=== PATIENT | female | born 1990 | race African-American/Black ===

== ENCOUNTER 2017-07-08 08:39 | Emergency (ER) | payer MEDICAID, OTHER ==
[~2017-07-08] VITALS: Ht 170.2 cm; Wt 75.3 kg
[~2017-07-08 08:39] MED LIST: RANITIDINE HCL150 MG ORAL; ZOFRAN ODT4 MG ORAL
[2017-07-08] MEDS ORDERED: NKM (08:51)
[2017-07-08 08:55] VITALS: BP 105/64
[2017-07-08] MEDS ORDERED: IBUPROFEN600 MG ORAL (09:05)
[2017-07-08 09:35] VITALS: BP 105/64
--- NOTE | 2017-07-08 09:43 | Emergency Room Report ---
History of Present Illness General Chief Complaint: General Complaint Source: Patient, Family Member Present Illness HPI 27-year-old female, no significant past medical history, presenting with back pain, headache, left breast pain intermittently for one week. Patient has not taken any medication. Patient states that she has more pain when she has been carrying her child. Has slight headache, left-sided, and no fever chills neck pain nausea vomiting blurry vision motor or sensory weakness. Patient has been eating and drinking normally. No fever no chills. Allergies: Coded Allergies: No Known Allergies (Unverified , 06/28/15) Patient History Past Medical History: see triage record Past Surgical History: none Pertinent Family History: none Last Menstrual Period: 06/17/17 Now: No - Mirena IUD Reviewed Nursing Documentation: PMH: Agreed, PSxH: Agreed Nursing Documentation-PMH Past Medical History: No Stated History Review of Systems All Other Systems: negative except mentioned in HPI Physical Exam Vital Signs Date Time Temp Pulse Resp B/P (MAP) Pulse Ox O2 Delivery O2 Flow Rate FiO2 07/08/17 08:48 98.9 73 16 105/64 100 Room Air 99.0 Sp02 EP Interpretation: reviewed, normal General Appearance: normal inspection, well appearing, no apparent distress, alert, GCS 15, non-toxic Head: normocephalic, atraumatic Eyes: bilateral eye normal inspection, bilateral eye PERRL, bilateral eye EOMI ENT: normal ENT inspection, normal pharynx, normal voice, moist mucus membranes Neck: normal inspection, full range of motion, supple, no meningismus Respiratory: normal inspection, lungs clear, normal breath sounds, no respiratory distress, no retraction, no wheezing, speaking full sentences, chest symmetrical Cardiovascular #1: normal inspection, regular rate, rhythm, no edema, normal capillary refill, other - breasts normal no erthema Cardiovascular #2: 2+ radial (R), 2+ radial (L) Gastrointestinal: normal inspection, non tender, soft, non-distended, no guarding Musculoskeletal: normal inspection, back normal, normal range of motion, non- tender Neurologic: normal inspection, alert, oriented x3, responsive, playground supervisor III-XII nml as tested, motor strength/tone normal, sensory intact, normal gait, speech normal Psychiatric: normal inspection, judgement/insight normal, memory normal Skin: normal inspection, normal color, no rash, warm/dry, well hydrated, normal turgor Medical Decision Making Diagnostic Impression: Primary Impression: Headache ER Course 27-year-old female presenting with intermittent headache, back pain, left breast pain No findings on physical exam DDX: Primary QUINTANILLA such as migraine, tension QUINTANILLA, cluster. vs. dehydration Other serious diagnoses on differential such as intracranial bleed/sah, meningitis/encephalitis, tumor, however patients H&P is more consistent with benign etiology at this time. There are no neurological signs/symptoms/findings on physical exam and patient appears nontoxic. Back pain likely musculoskeletal, no signs or symptoms to indicate serious pathology such as cord compression, epidural abscess. Patient has full range of motion. Left breast pain, again likely musculoskeletal: There is no signs of infection Plan: Motrin ER course: Patient feels much better Patient continues to appear nontoxic, aox3, no neurologic symptoms. Disposition: Patient will be discharged to home. Patient instructed to follow up with primary care doctor within 5 days. Strict return precautions discussed with patient such as severe/worsening headache, nausea, vomiting, fever chills, neck pain. Patient verbalized understanding. Please note that this Emergency Department Report was dictated using [employer] guide technology software, occasionally this can lead to erroneous entry secondary to interpretation by the dictation equipment. Last Vital Signs Date Time Temp Pulse Resp B/P (MAP) Pulse Ox O2 Delivery O2 Flow Rate FiO2 07/08/17 09:35 99.0 16 105/64 100 Room Air 210.2 07/08/17 08:48 73 Disposition: HOME, SELF-CARE Condition: Improved Scripts Ibuprofen* (MOTRIN*) 600 Mg Tablet 600 MG ORAL Q8H Y for For Pain, #30 TAB 0 Refills Prov: Ashlie Rizo M.D. 07/08/17 Referrals: [facility],REFERRING (PCP) Patient Instructions: General Headache Without Cause, [id number] Additional Instructions: PLEASE SEE YOUR DOCTOR IN 1 WEEK Ashlie Rizo M.D. Jul 08, 2017 09:43
== END 2017-07-08 09:37 | disposition home or self-care (01) ==
LOC: EMR 09:07
DX: R51 Headache (principal); M54.9 Dorsalgia, unspecified
CPT/HCPCS: 99283

== ENCOUNTER 2018-04-04 16:14 | Emergency (ER) | payer MEDICAID, OTHER ==
[~2018-04-04] VITALS: Ht 170.2 cm; Wt 79.4 kg
[~2018-04-04 16:14] MED LIST changes: +IBUPROFEN600 MG ORAL; +NKM
[2018-04-04 16:29] VITALS: BP 118/62
[2018-04-04] MEDS ORDERED: Lidocaine 2% Visc 15ml soln ORAL ONE (16:45)
[2018-04-04] MEDS ORDERED: Mylanta II UD 30ml ORAL ONE (16:45)
[2018-04-04 16:57] LABS: BILIRUBIN, URINE 2+ (NEGATIVE); GLUCOSE, URINE (UA) NEGATIVE (NEGATIVE); KETONES,URINE 1+ (NEGATIVE); LEUKOCYTE ESTERASE ,URINE 1+ (NEGATIVE); NITRITE,URINE NEGATIVE (NEGATIVE); PH,URINE 5 (4.5-8.0); PROTEIN,URINE 2+ (NEGATIVE); UROBILINOGEN,URINE 4 MG/DL (0.0-1.0)
[2018-04-04 17:01] LABS: COLOR,URINE AMBER
[2018-04-04 17:02] LABS: APPEARANCE,URINE SLIGHTLY CLOUDY
[2018-04-04 17:05] LABS: BASOPHILS % (AUTO) 0.7 % (0.0-2.0); EOSINOPHILS % (AUTO) 1.2 % (0.0-3.0); HEMOGLOBIN 12.9 G/DL (12.0-16.0); LYMPHOCYTES % (AUTO) 12.3 % (20.0-45.0); MEAN CORPUSCULAR VOLUME 86 FL (80-99); MONOCYTES % (AUTO) 7.3 % (1.0-10.0); NEUTROPHILS % (AUTO) 78.5 % (45.0-75.0); PLATELET COUNT 283 K/UL (150-450); RED BLOOD COUNT 4.16 M/UL (4.20-5.40); RED CELL DISTRIBUTION WIDTH 10.2 % (11.6-14.8); WHITE BLOOD COUNT 11.2 K/UL (4.8-10.8)
--- NOTE | 2018-04-04 17:25 | Emergency Room Report ---
History of Present Illness General Chief Complaint: Abdominal Pain Source: Patient (Mala Arreola) Present Illness HPI 27-year-old female presents to the emergency department complaining of 9 out of 10 in severity epigastric and right upper quadrant abdominal pain since yesterday. Patient reports multiple episodes of vomiting she estimates approximately 2 episodes today and 3 episodes yesterday with acute onset in the afternoon after eating. Patient reports persistent pain that is starting to migrate to the right upper quadrant and the left lower. Patient denies constipation, diarrhea, or blood in the vomit or stool. She also denies black tarry stools. Denies fevers or chills. Denies and states she has an IUD. She denies recent travel or ill contacts with similar symptoms. Patient denies hematuria, dysuria or urinary frequency. Denies pmhx. (Mala Arreola) Allergies: Coded Allergies: No Known Allergies (Unverified , 06/28/15) Patient History Past Medical History: see triage record Past Surgical History: none Pertinent Family History: none Last Menstrual Period: 03/2018 Now: No Reviewed Nursing Documentation: PMH: Agreed; PSxH: Agreed (Mala Arreola) Nursing Documentation-PMH Past Medical History: No Stated History (Mala Arreola) Review of Systems All Other Systems: negative except mentioned in HPI (Mala Arreola) Physical Exam Vital Signs Date Time Temp Pulse Resp B/P (MAP) Pulse Ox O2 Delivery O2 Flow Rate FiO2 04/04/18 16:18 98.4 80 20 113/68 99 Room Air Sp02 EP Interpretation: reviewed, normal General Appearance: alert, GCS 15, non-toxic, mild distress Head: normocephalic, atraumatic Eyes: bilateral eye normal inspection, bilateral eye PERRL ENT: hearing grossly normal, normal voice Neck: full range of motion Respiratory: lungs clear, normal breath sounds, no wheezing, speaking full sentences Cardiovascular #1: regular rate, rhythm Gastrointestinal: normal bowel sounds, soft, tenderness - TTP Epigastric area and RUQ. No RLQ TTP. some mild LLQ TTP. No adnexal TTP, Positive Good's sign. negative rosvigns or macburny's point tenderness. Rectal: deferred Genitourinary: normal inspection, no CVA tenderness Musculoskeletal: back normal, gait/station normal, normal range of motion, non- tender Neurologic: alert, oriented x3, responsive, motor strength/tone normal, sensory intact, speech normal, grossly normal Psychiatric: judgement/insight normal Skin: normal color, no rash, warm/dry, well hydrated Lymphatic: no adenopathy (Mala Arreola) Medical Decision Making PA Attestation Dr. Ramirez is my supervising Physician whom patient management has been discussed with. (Mala Arreola) Medicare Attestation Patient's workup and evaluation also reviewed by myself I do agree with the exam and workup patient's blood work is concerning for gallstone pancreatitis further imaging initiated and patient requires admission to the hospital 20:55 Please note that at this time the patient had reported that she wanted to leave the hospital AGAINST MEDICAL ADVICE, she has spoken to the provider already, however I felt it was important for me to also discuss this with the patient. Patient is at full decision-making capacity, awake and alert GCS 15, it is explained clearly that leaving the hospital at this time can lead to worsening symptoms worsening infection and possible , patient reports that she cannot stay in the hospital at this time and understands the risks (Molly Ramirez DO) Diagnostic Impression: Primary Impression: Acute gallstone pancreatitis Additional Impression: UTI (urinary tract infection) Qualified Codes: N30.01 - Acute cystitis with hematuria ER Course 27-year-old female presents to the emergency department complaining of 9 out of 10 in severity epigastric and right upper quadrant abdominal pain since yesterday. Patient reports multiple episodes of vomiting she estimates approximately 2 episodes today and 3 episodes yesterday with acute onset in the afternoon after eating. Patient reports persistent pain that is starting to migrate to the right upper quadrant and the left lower. Patient denies constipation, diarrhea, or blood in the vomit or stool. She also denies black tarry stools. Denies fevers or chills. Denies and states she has an IUD. She denies recent travel or ill contacts with similar symptoms. Patient denies hematuria, dysuria or urinary frequency. Denies pmhx. Ddx considered but are not limited to Gastritis, Acute Appendicitis, Diarrhea,UC , PUD, GE, Pancreatitis, Gallstone, Ectopic , UTI just to name a few. Vital signs: are WNL, pt. is afebrile H&PE are most consistent with abdominal pain and vomiting without evidence of acute abdomen. Moderate RUQ ttp compared to other areas of the abdomen and positive Good's sign. Will do labs and consider US imaging. ORDERS: -CBC, CMP, LIPASE: Elevated LFT's, Lipase ( 14, 783) and Bilirubin -UA: blood and RBC's, Moderate bacteria. elevated WBC's and Leuks= UTI -URINE HCG:Negative ED INTERVENTIONS: -PO zofran 4mg IV -Viscous Lidocaine PO -Mylanta PO -Pepcid PO - 1 liter bolus IV Fluids -Pyridium PO -Toradol IV --pt. pain is well controlled after Toradol. DISPOSITION: at this time pt. will be admitted for Gallstone Pancreatitis - Pt. is a possible transfer due to insurance purposes. Pt. is in a stable condition and transfer of care is being facilitated. Labs Test 04/04/18 16:25 04/04/18 16:50 Urine Color Margi Urine Appearance Slightly cloudy Urine pH 5 (4.5-8.0) Urine Specific [place] 1.015 (1.005-1.035) Urine Protein 2+ (NEGATIVE) Urine Glucose (UA) Negative (NEGATIVE) Urine Ketones 1+ (NEGATIVE) Urine Blood 4+ (NEGATIVE) Urine Nitrite Negative (NEGATIVE) Urine Bilirubin 2+ (NEGATIVE) Urine Ictotest Negative (NEGATIVE) Urine Urobilinogen 4 MG/DL (0.0-1.0) Urine Leukocyte Esterase 1+ (NEGATIVE) Urine RBC 15-20 /HPF (0 - 2) Urine WBC 5-10 /HPF (0 - 2) Urine Squamous Epithelial Cells Many /LPF (NONE/OCC) Urine Bacteria Moderate /HPF (NONE) Urine HCG, Qualitative Negative (NEGATIVE) White Blood Count 11.2 K/UL (4.8-10.8) Red Blood Count 4.16 M/UL (4.20-5.40) Hemoglobin 12.9 G/DL (12.0-16.0) Hematocrit 36.0 % (37.0-47.0) Mean Corpuscular Volume 86 FL (80-99) Mean Corpuscular Hemoglobin 31.0 PG (27.0-31.0) Mean Corpuscular Hemoglobin Concent 35.8 G/DL (32.0-36.0) Red Cell Distribution Width 10.2 % (11.6-14.8) Platelet Count 283 K/UL (150-450) Mean Platelet Volume 8.6 FL (6.5-10.1) Neutrophils (%) (Auto) 78.5 % (45.0-75.0) Lymphocytes (%) (Auto) 12.3 % (20.0-45.0) Monocytes (%) (Auto) 7.3 % (1.0-10.0) Eosinophils (%) (Auto) 1.2 % (0.0-3.0) Basophils (%) (Auto) 0.7 % (0.0-2.0) Sodium Level 137 MMOL/L (136-145) Potassium Level 4.1 MMOL/L (3.5-5.1) Chloride Level 102 MMOL/L (98-107) Carbon Dioxide Level 30 MMOL/L (21-32) Anion Gap 6 mmol/L (5-15) Blood Urea Nitrogen 8 mg/dL (7-18) Creatinine 0.6 MG/DL (0.55-1.30) Estimat Glomerular Filtration Rate > 60 mL/min (>60) Glucose Level 149 MG/DL (74-106) Calcium Level 9.6 MG/DL (8.5-10.1) Total Bilirubin 2.1 MG/DL (0.2-1.0) Direct Bilirubin 1.5 MG/DL (0.0-0.3) Aspartate Amino Transf (AST/SGOT) 405 U/L (15-37) Alanine Aminotransferase (ALT/SGPT) 507 U/L (12-78) Alkaline Phosphatase 120 U/L (46-116) Total Protein 8.7 G/DL (6.4-8.2) Albumin 4.0 G/DL (3.4-5.0) Globulin 4.7 g/dL Albumin/Globulin Ratio 0.9 (1.0-2.7) Lipase 97928 U/L (73-393) (Mala Arreola) CT/MRI/US Diagnostic Results CT/MRI/US Diagnostic Results : Imaging Test Ordered: Abdominal US Impression Impression: Multiple stones in the gallbladder, CBD of 10mm. - Per Radiology report. (Mala Arreola) Last Vital Signs Date Time Temp Pulse Resp B/P (MAP) Pulse Ox O2 Delivery O2 Flow Rate FiO2 04/04/18 16:29 98.4 74 20 118/62 99 Room Air Status: improved (Mala Arreola) Disposition: ADMITTED INPATIENT Condition: Serious Signed Out To: Dr. Ramirez (Mala Arreola) Referrals: NON PHYSICIAN (PCP) Mala Arreola Apr 04, 2018 17:25 Molly Ramirez DO Apr 04, 2018 18:14
[2018-04-04 17:27] LABS: ANION GAP 6 mmol/L (5-15); BLOOD UREA NITROGEN 8 mg/dL (7-18); CALCIUM 9.6 MG/DL (8.5-10.1); CARBON DIOXIDE 30 MMOL/L (21-32); CHLORIDE 102 MMOL/L (98-107); CREATININE 0.6 MG/DL (0.55-1.30); POTASSIUM 4.1 MMOL/L (3.5-5.1); SODIUM 137 MMOL/L (136-145)
[2018-04-04] MEDS ORDERED: Phenazopyridine 200mg tab ORAL ONE (17:30)
[2018-04-04 17:38] LABS: ALANINE AMINOTRANSFERASE 507 U/L (12-78); ALBUMIN/GLOBULIN RATIO 0.9 (1.0-2.7); ALKALINE PHOSPHATASE 120 U/L (46-116); ASPARTATE AMINO TRANSFERASE 405 U/L (15-37); BILIRUBIN,TOTAL 2.1 MG/DL (0.2-1.0)
[2018-04-04] MEDS ORDERED: Ketorolac 30mg Inj IV ONE (17:45)
[2018-04-04 18:03] LABS: BILIRUBIN,DIRECT 1.5 MG/DL (0.0-0.3)
[2018-04-04 20:46] VITALS: BP 103/73
[2018-04-04 21:12] VITALS: BP 101/72
--- NOTE | 2018-04-06 12:15 | Diagnostic Imaging Report ---
Indication: Abdominal pain, nausea, vomiting, epigastric pain Technique: Barahona-scale and duplex images of the upper abdomen were obtained. Doppler interrogation of the hepatic and pancreatic vessels Comparison: none Findings: Gallbladder demonstrates gallstones. Gallbladder wall is borderline thickened, measuring 3 mm thick. Free fluid is seen adjacent to the gallbladder. Sonographic Good's sign is negative. Common bile duct measures 10 mm in diameter. No intrahepatic biliary ductal dilatation. Liver demonstrates normal echogenicity, no focal abnormality. Portal vein and hepatic veins are patent. Pancreas is unremarkable. Spleen is unremarkable. Left kidney measures 12.9 cm in length. Right kidney measures 12.4 cm length. Both kidneys demonstrate normal echogenicity. There is no hydronephrosis. No focal abnormality . Non-aneurysmal abdominal aorta . Impression: Cholelithiasis. Borderline gallbladder wall thickening, could indicate early acute cholecystitis changes. Correlate with clinical findings, consider nuclear medicine hepatobiliary scan if clinically indicated Dilated (10 mm) common bile duct. Downstream obstruction not excludable Trace free intraperitoneal fluid This agrees with the preliminary interpretation provided overnight by [facility].
== END 2018-04-04 21:16 | disposition left against medical advice (07) ==
LOC: EMR 17:00 → EDBEDREQ 18:05 → CANBEDREQ 20:55 → EMR 21:16
DX: K85.10 Biliary acute pancreatitis without necrosis or infection (principal); N39.0 Urinary tract infection, site not specified
CPT/HCPCS: 36415; 76700; 80053; 81003; 81025; 82248; 83690; 85025; 87086; 96361; 96374; 96375; 99285; J1885; J2405

== ENCOUNTER 2018-10-11 14:20 | Emergency (ER) | payer OTHER ==
[~2018-10-11] VITALS: Ht 170.2 cm; Wt 77.1 kg
[2018-10-11 14:39] VITALS: BP 112/68
--- NOTE | 2018-10-11 14:41 | NUR ---
ED Nurse Note: Pt started having medial upper abdominal pain since 0300 this morning. No complaint of n/v/d. Pain 10/19 tm. Bowel sounds present on all quadrants. AOx4, VSS lydia. Will cont to monitor.
--- NOTE | 2018-10-11 14:42 | NUR ---
ED Nurse Note: Urine collected and sent to lab.
--- NOTE | 2018-10-11 14:43 | Emergency Room Report ---
History of Present Illness General Chief Complaint: Abdominal Pain Source: Patient Present Illness HPI 28-year-old female presents to the emergency department complaining of 6 out of 10 in severity localized epigastric pain 2 hours. Patient reports onset after eating out and states that she has a very sensitive stomach and usually when she eats out she gets gastritis. Patient reports that she is the only person in her family that it the same food as her symptoms. Patient denies fevers or chills recent travel or ill contacts with similar symptoms. Patient denies she reports nausea and states she's been unable to vomit. Patient denies constipation or diarrhea, urinary frequency, hematuria or dysuria. Patient denies suspicion for she has no other aggravating or relieving symptoms at this time. Patient states she did drink some Advil and attempts to relieve her symptoms however she states her symptoms were worse after. she denies significant past medical history. Allergies: Coded Allergies: No Known Allergies (Unverified , 06/28/15) Patient History Past Medical History: see triage record Past Surgical History: none Pertinent Family History: none Last Menstrual Period: 09/27/18 Now: No Reviewed Nursing Documentation: PMH: Agreed Nursing Documentation-PMH Past Medical History: No Stated History Review of Systems All Other Systems: negative except mentioned in HPI Physical Exam Vital Signs Date Time Temp Pulse Resp B/P (MAP) Pulse Ox O2 Delivery O2 Flow Rate FiO2 10/11/18 14:24 97.9 69 20 112/68 (83) 100 Room Air Sp02 EP Interpretation: reviewed, normal General Appearance: no apparent distress, alert, GCS 15, non-toxic Head: normocephalic, atraumatic Eyes: bilateral eye normal inspection, bilateral eye PERRL ENT: hearing grossly normal, normal voice Neck: full range of motion Respiratory: lungs clear, normal breath sounds, speaking full sentences Cardiovascular #1: regular rate, rhythm Gastrointestinal: normal bowel sounds, non tender, soft, no peritonitis, non- distended, no guarding Genitourinary: normal inspection, no CVA tenderness Musculoskeletal: gait/station normal, normal range of motion, non-tender Neurologic: alert, oriented x3, responsive, motor strength/tone normal, sensory intact, speech normal, grossly normal Psychiatric: judgement/insight normal Skin: normal color, no rash, warm/dry, well hydrated Medical Decision Making PA Attestation Dr. Chavez is my supervising Physician whom patient management has been discussed with. Diagnostic Impression: Primary Impression: Epigastric pain Additional Impression: Gastritis Qualified Codes: K29.00 - Acute gastritis without bleeding ER Course 28-year-old female presents to the emergency department complaining of 6 out of 10 in severity localized epigastric pain 2 hours. Patient reports onset after eating out and states that she has a very sensitive stomach and usually when she eats out she gets gastritis. Patient reports that she is the only person in her family that it the same food as her symptoms. Patient denies fevers or chills recent travel or ill contacts with similar symptoms. Patient denies she reports nausea and states she's been unable to vomit. Patient denies constipation or diarrhea, urinary frequency, hematuria or dysuria. Patient denies suspicion for she has no other aggravating or relieving symptoms at this time. Patient states she did drink some Advil and attempts to relieve her symptoms however she states her symptoms were worse after. she denies significant past medical history. Ddx considered but are not limited to GE, colitis, acute appy, SBO, H.pylori, Gastritis, PNA, ,Gall stones, pancreatitis just to name a few. Vital signs: pt. is afebrile, H&PE are most consistent with Gastritis - no evidence to suggest acute abdomen on physical exam. ORDERS: -UA: Most indicative of contamination: presence of equal amounts of bacteria and squamous cells, no elevation in inflammatory markers, nitrite negative. -Urine Hcg: Negative ED INTERVENTIONS: -Mylanta PO -Lidocaine PO -Pepcid PO -I do not identify an emergent condition at this time. With current presentation , pt. is stable for close outpatient follow up and conservative treatment. D/ w pt. to return promptly to ED with worsening or new symptoms.- Pt. (and or responsible green party) verbalizes' understanding and agreement with proposed treatment plan.proposed treatment plan. DISCHARGE: At this time pt. is stable for d/c to home. Will provide printed patient care instructions, and any necessary prescriptions. Care plan and follow up instructions have been discussed with the patient prior to discharge. Labs Test 10/11/18 14:40 Urine Color Yellow Urine Appearance Clear Urine pH 7 (4.5-8.0) Urine Specific [place] 1.005 (1.005-1.035) Urine Protein Negative (NEGATIVE) Urine Glucose (UA) Negative (NEGATIVE) Urine Ketones Negative (NEGATIVE) Urine Blood 2+ (NEGATIVE) Urine Nitrite Negative (NEGATIVE) Urine Bilirubin Negative (NEGATIVE) Urine Urobilinogen 1 MG/DL (0.0-1.0) Urine Leukocyte Esterase Negative (NEGATIVE) Urine RBC 2-4 /HPF (0 - 2) Urine WBC 0 /HPF (0 - 2) Urine Squamous Epithelial Cells Occasional /LPF Urine Bacteria Occasional /HPF (NONE) Urine HCG, Qualitative Negative (NEGATIVE) Last Vital Signs Date Time Temp Pulse Resp B/P (MAP) Pulse Ox O2 Delivery O2 Flow Rate FiO2 10/11/18 14:39 97.9 69 20 112/68 100 Room Air Status: improved Disposition: HOME, SELF-CARE Condition: Stable Scripts Lidocaine HCl 2% Viscous (Lidocaine HCl 2% Viscous) 100 Ml Solution 10 ML ORAL QID, #120 ML Prov: Mala Arreola 10/11/18 Ranitidine Hcl* (ACID CONTROL*) 150 Mg Tablet 150 MG ORAL TWICE A DAY for 10 Days, #20 TAB Prov: Mala Arreola 10/11/18 Patient Instructions: Gastritis, Adult Additional Instructions: Take medications as directed. Follow up with a Primary Care Provider in 3-5 days, even if your symptoms have resolved. Return sooner to ED if new symptoms occur, or current symptoms become worse. - Please note that this Emergency Department Report was dictated using [employer] technology software, occasionally this can lead to erroneous entry secondary to interpretation by the dictation equipment. Mala Arreola Oct 11, 2018 14:43
[2018-10-11] MEDS ORDERED: Lidocaine 2% Visc 15ml soln ORAL ONE (14:45)
[2018-10-11 14:49] LABS: APPEARANCE,URINE CLEAR; BILIRUBIN, URINE NEGATIVE (NEGATIVE); GLUCOSE, URINE (UA) NEGATIVE (NEGATIVE); KETONES,URINE NEGATIVE (NEGATIVE); LEUKOCYTE ESTERASE ,URINE NEGATIVE (NEGATIVE); NITRITE,URINE NEGATIVE (NEGATIVE); PH,URINE 7 (4.5-8.0); PROTEIN,URINE NEGATIVE (NEGATIVE); UROBILINOGEN,URINE 1 MG/DL (0.0-1.0)
[2018-10-11 14:59] LABS: COLOR,URINE YELLOW
[2018-10-11] MEDS ORDERED: ACID CONTROL150 MG ORAL (15:42)
[2018-10-11] MEDS ORDERED: LIDOCAINE VISC100 ML ORAL (15:42)
[2018-10-11 15:50] VITALS: BP 118/54
--- NOTE | 2018-10-11 15:50 | NUR ---
ER DISCHARGE NOTE: Patient is cleared to be discharged per ERMD, pt is aox4, on room air, with stable vital signs. pt was given dc and prescription instructions, pt was able to verbalize understanding, pt id band removed. pt is able to ambulate with steady gait. pt took all belongings.
== END 2018-10-11 15:50 | disposition home or self-care (01) ==
LOC: EMR 14:53
DX: R10.13 Epigastric pain (principal); K29.00 Acute gastritis without bleeding
CPT/HCPCS: 81003; 81025; 99283

== ENCOUNTER 2018-11-05 22:44 | Inpatient (IN) | payer OTHER ==
[~2018-11-05] VITALS: Ht 167.6 cm; Wt 77.1 kg
[~2018-11-05 22:44] MED LIST changes: +ACID CONTROL150 MG ORAL; +LIDOCAINE VISC100 ML ORAL
[2018-11-05 22:57] VITALS: BP 148/99
[2018-11-05] MEDS ORDERED: Mylanta II UD 30ml ORAL ONE (23:30)
[2018-11-05] MEDS ORDERED: Dicyclomine HCl 10mg/5ml oral soln ORAL ONE (23:30)
[2018-11-05] MEDS ORDERED: Lidocaine 2% Visc 15ml soln ORAL ONE (23:30)
[2018-11-05 23:56] LABS: APPEARANCE,URINE CLEAR; BILIRUBIN, URINE 2+ (NEGATIVE); GLUCOSE, URINE (UA) NEGATIVE (NEGATIVE); KETONES,URINE 1+ (NEGATIVE); LEUKOCYTE ESTERASE ,URINE 1+ (NEGATIVE); NITRITE,URINE NEGATIVE (NEGATIVE); PH,URINE 5 (4.5-8.0); PROTEIN,URINE 2+ (NEGATIVE); UROBILINOGEN,URINE 4 MG/DL (0.0-1.0)
[2018-11-05 23:56] LABS: HEMATOCRIT 35.7 % (37.0-47.0); HEMOGLOBIN 12.4 G/DL (12.0-16.0); MEAN CORPUSCULAR VOLUME 86 FL (80-99); PLATELET COUNT 247 K/UL (150-450); RED BLOOD COUNT 4.14 M/UL (4.20-5.40); RED CELL DISTRIBUTION WIDTH 10.5 % (11.6-14.8); WHITE BLOOD COUNT 9.3 K/UL (4.8-10.8)
--- NOTE | 2018-11-06 00:08 | NUR ---
ED Nurse Note: Endorsed to Nina/WES, for covering the break. Pt is A/O X4 VSS.
[2018-11-06 00:09] LABS: COLOR,URINE YELLOW
[2018-11-06 00:24] LABS: ALANINE AMINOTRANSFERASE 393 U/L (12-78); ALBUMIN 4.1 G/DL (3.4-5.0); ALBUMIN/GLOBULIN RATIO 1.1 (1.0-2.7); ALKALINE PHOSPHATASE 115 U/L (46-116); ANION GAP 8 mmol/L (5-15); ASPARTATE AMINO TRANSFERASE 350 U/L (15-37); BILIRUBIN,TOTAL 1.4 MG/DL (0.2-1.0); BLOOD UREA NITROGEN 9 mg/dL (7-18); CALCIUM 9.4 MG/DL (8.5-10.1); CARBON DIOXIDE 26 MMOL/L (21-32); CHLORIDE 105 MMOL/L (98-107); CREATININE 0.6 MG/DL (0.55-1.30); POTASSIUM 4.1 MMOL/L (3.5-5.1); SODIUM 139 MMOL/L (136-145)
[2018-11-06 00:30] LABS: BILIRUBIN,DIRECT 0.9 MG/DL (0.0-0.3)
--- NOTE | 2018-11-06 00:43 | NUR ---
ED Nurse Note: Received report from Nina/WES. Pt is A/O X4,VSS, will continue to monitor.
[2018-11-06] MEDS ORDERED: Isovue-300 100ml vial INJ PRN (01:00)
--- NOTE | 2018-11-06 01:40 | NUR ---
ED Nurse Note: Pt was sent down for CT of abdomen.
--- NOTE | 2018-11-06 02:43 | NUR ---
ED Nurse Note: Waiting for confirmation from .
[2018-11-06] MEDS ORDERED: Piperacillin/Tazobactam 3.375 GM in NS 110 ML IVPB ONE (02:45)
[2018-11-06] MEDS ORDERED: Morphine Sulfate 4mg/ml Inj (IV USE ONLY) IVP PRN ×2 (02:45→03:45)
--- NOTE | 2018-11-06 02:45 | NUR ---
ED Nurse Note: Pt's , .
--- NOTE | 2018-11-06 02:50 | Emergency Room Report ---
History of Present Illness General Chief Complaint: Abdominal Pain Source: Patient Present Illness HPI 28-year-old female presents ED for evaluation. Patient complaining of abdominal pain nausea and vomiting. Started yesterday. Patient thinks it is food poisoning. Pain is sharp, epigastric, 7 out of 10, radiating low to lower abdomen. Denies any diarrhea. at bedside states that patient was seen here previously for similar presentation and was told that she had gallstones. No other aggravating relieving factors. Denies any other associated symptoms Allergies: Coded Allergies: No Known Allergies (Unverified , 06/28/15) Patient History Past Medical History: none Past Surgical History: none Pertinent Family History: none Social History: Denies: smoking, alcohol use, drug use Last Menstrual Period: 10/11/18 Now: No : 2 Para: 2 Immunizations: UTD Reviewed Nursing Documentation: PMH: Agreed; PSxH: Agreed Nursing Documentation-PMH Past Medical History: No Stated History Review of Systems All Other Systems: negative except mentioned in HPI Physical Exam Vital Signs Date Time Temp Pulse Resp B/P (MAP) Pulse Ox O2 Delivery O2 Flow Rate FiO2 11/05/18 22:47 98.1 98 20 97/57 (70) Room Air 11/05/18 22:57 98 Sp02 EP Interpretation: reviewed, normal General Appearance: no apparent distress, alert, GCS 15, non-toxic Head: normocephalic, atraumatic Eyes: bilateral eye normal inspection, bilateral eye PERRL ENT: hearing grossly normal, normal pharynx, no angioedema, normal voice Neck: full range of motion, supple/symm/no masses Respiratory: chest non-tender, lungs clear, normal breath sounds, speaking full sentences Cardiovascular #1: regular rate, rhythm, no edema Cardiovascular #2: 2+ carotid (R), 2+ carotid (L), 2+ radial (R), 2+ radial (L) , 2+ dorsalis pedis (R), 2+ dorsalis pedis (L) Gastrointestinal: normal bowel sounds, soft, non-distended, no guarding, no rebound, tenderness Rectal: deferred Genitourinary: normal inspection, no CVA tenderness Musculoskeletal: back normal, gait/station normal, normal range of motion, non- tender Neurologic: alert, oriented x3, responsive, motor strength/tone normal, sensory intact, speech normal Psychiatric: judgement/insight normal, memory normal, mood/affect normal, no suicidal/homicidal ideation Reflexes: 3+ bicep (R), 3+ bicep (L), 3+ tricep (R), 3+ tricep (L), 3+ knee (R) , 3+ knee (L) Skin: normal color, no rash, warm/dry, well hydrated Lymphatic: no adenopathy Medical Decision Making Diagnostic Impression: Primary Impression: Cholecystitis Additional Impression: Pancreatitis Qualified Codes: K85.90 - Acute pancreatitis without necrosis or infection, unspecified ER Course Hospital Course 28 yo F present to ED c/o abd pain Differential diagnoses include: Appendicitis, cholecystitis, small bowel obstruction Clinical course Patient placed on stretcher. nurse monitoring. After initial history and physical I ordered labs, IV fluids, UA, pain medication and CT Labs - no leukocytosis noted, Hb/Hct stable. electrolytes ok. LFTs elevated, lipase > 2000 CT - cholecystitis + pancreatits. hepatosplenomegaly Antibiotics given. Case discussed with Dr. Delvalle and he agreed to consult. Case discussed with Dr. Francis and he agreed to accept the patient to his service for further care and support I feel this is a highly complex case requiring extensive working including EKG/ Rhythm strip, Xray/CT/US, Blood/urine lab work, repeat exams while in ED, and administration of strong opiates/narcotics for pain control, admission to hospital or close patient follow up. Diagnosis - cholecystitis, pancreatitis Patient admitted to hospital in serious condition Labs Test 11/05/18 23:00 11/05/18 23:44 Urine Color Yellow Urine Appearance Clear Urine pH 5 (4.5-8.0) Urine Specific [place] 1.025 (1.005-1.035) Urine Protein 2+ (NEGATIVE) Urine Glucose (UA) Negative (NEGATIVE) Urine Ketones 1+ (NEGATIVE) Urine Blood 1+ (NEGATIVE) Urine Nitrite Negative (NEGATIVE) Urine Bilirubin 2+ (NEGATIVE) Urine Ictotest Positive (NEGATIVE) Urine Urobilinogen 4 MG/DL (0.0-1.0) Urine Leukocyte Esterase 1+ (NEGATIVE) Urine RBC 2-4 /HPF (0 - 2) Urine WBC 0-2 /HPF (0 - 2) Urine Squamous Epithelial Cells Moderate /LPF (NONE/OCC) Urine Bacteria Few /HPF (NONE) Urine HCG, Qualitative Negative (NEGATIVE) White Blood Count 9.3 K/UL (4.8-10.8) Red Blood Count 4.14 M/UL (4.20-5.40) Hemoglobin 12.4 G/DL (12.0-16.0) Hematocrit 35.7 % (37.0-47.0) Mean Corpuscular Volume 86 FL (80-99) Mean Corpuscular Hemoglobin 29.8 PG (27.0-31.0) Mean Corpuscular Hemoglobin Concent 34.6 G/DL (32.0-36.0) Red Cell Distribution Width 10.5 % (11.6-14.8) Platelet Count 247 K/UL (150-450) Mean Platelet Volume 8.9 FL (6.5-10.1) Neutrophils (%) (Auto) % (45.0-75.0) Lymphocytes (%) (Auto) % (20.0-45.0) Monocytes (%) (Auto) % (1.0-10.0) Eosinophils (%) (Auto) % (0.0-3.0) Basophils (%) (Auto) % (0.0-2.0) Sodium Level 139 MMOL/L (136-145) Potassium Level 4.1 MMOL/L (3.5-5.1) Chloride Level 105 MMOL/L (98-107) Carbon Dioxide Level 26 MMOL/L (21-32) Anion Gap 8 mmol/L (5-15) Blood Urea Nitrogen 9 mg/dL (7-18) Creatinine 0.6 MG/DL (0.55-1.30) Estimat Glomerular Filtration Rate > 60 mL/min (>60) Glucose Level 191 MG/DL (74-106) Calcium Level 9.4 MG/DL (8.5-10.1) Total Bilirubin 1.4 MG/DL (0.2-1.0) Direct Bilirubin 0.9 MG/DL (0.0-0.3) Aspartate Amino Transf (AST/SGOT) 350 U/L (15-37) Alanine Aminotransferase (ALT/SGPT) 393 U/L (12-78) Alkaline Phosphatase 115 U/L (46-116) Total Protein 7.8 G/DL (6.4-8.2) Albumin 4.1 G/DL (3.4-5.0) Globulin 3.7 g/dL Albumin/Globulin Ratio 1.1 (1.0-2.7) Lipase > 2000 U/L (73-393) CT/MRI/US Diagnostic Results CT/MRI/US Diagnostic Results : Imaging Test Ordered: CT A/P Impression Hepatosplenomegaly. The gallbladder is markedly distended containing sludge and multiple stones. Adjacent inflammatory changes including free fluid. Diffuse heterogeneous enlargement of the pancreas with moderate peripancreatic inflammatory changes. No evidence of foci of pancreatic necrosis. Intra-and extrahepatic biliary ductal dilatation with the extrahepatic bile duct measuring up to 11 mm. There is also probably at least a mild degree of associated periportal edema. Findings consistent with cholecystitis and pancreatitis. Biliary ductal dilatation indicative of either choledocholithiasis or other distal obstructing lesion. Recommend MRI/MRCP. Negative for lower GI tract obstruction, pneumatosis or evidence of pneumoperitoneum. Moderate abdominal and pelvic free fluid. IUD present. Multiple functional cyst right ovary with a dominant cyst demonstrating partial crenation or peripheral enhancement likely partially ruptured functional cyst. Last Vital Signs Date Time Temp Pulse Resp B/P (MAP) Pulse Ox O2 Delivery O2 Flow Rate FiO2 11/05/18 22:57 76 20 Room Air 11/05/18 22:57 98.1 148/99 98 Status: improved Disposition: ADMITTED INPATIENT Condition: Serious Referrals: [facility],REFERRING (PCP) Nathan Freeman MD Nov 06, 2018 02:50
--- NOTE | 2018-11-06 02:55 | NUR ---
ED Nurse Note: Report given to Hellen/WES.
--- NOTE | 2018-11-06 03:00 | NUR ---
NURSE NOTES: patient received. patient in no acute distress at this time. patient complains of no pain at this time. patient awake alert and oriented x4. at bedside. patient ambulatory. steady gait. continent x2. IV intact patent and asymptomatic. skin intact. Bed in lowest position and locked. call light within reach. will continue to monitor.
[2018-11-06 03:25] VITALS: BP 106/61
--- NOTE | 2018-11-06 03:25 | NUR ---
TRANSFER TO FLOOR: Patient transferred to /S [facility] as ordered. Report given to Hellen/WES. Belongings sent with Pt and rechecked with RN.
[2018-11-06] MEDS ORDERED: Morphine Sulfate 2mg/ml Inj(IV/IM USE ONLY) IVP PRN (03:45)
--- NOTE | 2018-11-06 04:28 | NUR ---
NURSE NOTES: patient and patients requested to leave. said they had a primary physician they would see in the morning. Nurse artificial breeding ranch supervisor and charge nurse informed. Dr. Francis was informed as well. a message was left for him informing him the patient was leaving. The patient signed an AMA. patient was accompanied out of the hospital with her . IV was removed.
--- NOTE | 2018-11-06 10:36 | Diagnostic Imaging Report ---
Indication: Abdominal pain Technique: CT of the abdomen and pelvis utilizing automated exposure control with intravenous contrast. Venous scanning performed. Axial, sagittal and coronal reformats presented. CT dose: Total DLP 856.28 mGycm; CTDI vol 15.7 mGy Comparison: Abdominal ultrasound 04/04/2018 Findings: Minimal dependent atelectasis noted in the lung bases. Heart size within normal limits. No pericardial effusion. Hepatic contour is smooth. Liver is enlarged to approximately 19 cm in cranial caudal length. No focal hepatic mass lesion appreciated on this single phase exam. Portal veins appear patent. There is abnormal distention of the gallbladder up to 5.2 cm. The gallbladder lumen contains stones and sludge. There is suggested gallbladder wall thickening and surrounding inflammatory changes with some pericholecystic fluid. There is mild central intrahepatic biliary ductal dilatation. The common bile duct is mildly prominent measuring up to 10 mm diameter. There is some periportal edema. No discrete choledocholithiasis identified. The pancreas appears edematous with some peripancreatic inflammatory changes without organized fluid collection. The pancreas enhances uniformly, without evidence to suggest focal area of necrosis. There is enlarged measuring 12.6 cm in length. No focal splenic lesions identified. Adrenal glands and kidneys unremarkable. Bladder unremarkable in appearance for degree of underdistention. Intrauterine device is noted within the uterus. Mild free fluid is noted within the pelvis. A crenulated structure is noted in the right ovary which may represent a partially ruptured functional cyst. There is no evidence of small bowel obstruction. No free intraperitoneal air. Appendix is normal. There is a small fat-containing umbilical hernia. Abdominal aorta is normal in caliber. Splenic vein, superior mesenteric vein are patent. No acute osseous abnormality identified. IMPRESSION: * Cholelithiasis and gallbladder sludge with distention of the gallbladder and pericholecystic inflammatory changes suggestive of acute cholecystitis. * Findings suggestive of associated acute pancreatitis with peripancreatic inflammatory changes and pancreatic edema. Patient with pancreatic enzymes recommended. No organized fluid collections to suggest pseudocyst. Pancreas enhanced uniformly without evidence to suggest pancreatic necrosis. * Mild hepatic and extrahepatic biliary ductal prominence with the common bile duct measuring up to 10 mm. No discrete choledocholithiasis or definite downstream obstructive lesion identified. * Mild Hepatosplenomegaly. Additional incidental findings as above. This corresponds with the statrad preliminary report. The CT scanner at [facility] is accredited by the [employer] and the scans are performed using protocols designed to limit radiation exposure to as low as reasonably achievable to attain images of sufficient resolution adequate for diagnostic evaluation.
--- NOTE | 2018-11-06 13:58 | Discharge Summary ---
Discharge Summary Discharge Summary _ DATE OF ADMISSION: 11/06/2018 DATE OF DISCHARGE: 11/06/2018 Patient left AGAINST MEDICAL ADVICE REASON FOR ADMISSION: 28 years old female with no significant past medical history, presented to emergency department for evaluation due to abdominal pain, nausea, and vomiting for 1 day. Patient stated that she thinks she may have a food poisoning. Pain described as sharp, epigastric ,7 out of 10 ,radiating to lower abdomen. No diarrhea. No blood in emesis. at the bedside reported, that patient had similar presentation in the past and was told that she had gallstones. Upon evaluation patient was afebrile. Blood pressure was on the low side 97/57. Laboratory work-up revealed no leukocytosis , hemoglobin 12.4, hematocrit 35.7 , platelet count 247. A ll electrolytes and renal parameters stable. Glucose 191. Total bilirubin 1.4 , direct bilirubin 0.9. AST 350 , ALT 393. Albumin 4.1. Lipase over 2000. CT of the abdomen and pelvis demonstrated cholelithiasis and gallbladder sludge with distention of the gallbladder and pericholecystic inflammatory ; changes suggestive of acute cholecystitis. Findings suggestive of associated acute pancreatitis with peripancreatic inflammatory changes and pancreatic edema. No organized fluid collection to suggest pseudocyst. Mild hepatic and extrahepatic biliary ductal prominence with the common bile duct measuring up to 10 mm. No discrete choledocholithiasis or definite downstream obstructive lesion identified. Mild hepatosplenomegaly. Urinalysis revealed no evidence of UTI , +2 protein, +2 bilirubin. Urine test was negative. Patient was admitted to medical surgical floor for further management. HOSPITAL COURSE: Patient admitted to medical surgical floor. Patient started on the IV fluids Patient was kept n.p.o. Pain management was addressed. Antiemetic were on board as needed. Antibiotics continued. In 2 hours after arrival on the floor, patient decided to leave AGAINST MEDICAL ADVICE. Her at the bedside with her. Patient reported that she will see primary care physician in the morning . The risks and consequences of signing AGAINST MEDICAL ADVICE were discussed with patient in detail. Patient verbalized understanding, nevertheless signed AMA form and left. FINAL DIAGNOSES: Acute cholecystitis Acute pancreatitis I have been assigned to dictate discharge summary for this account. I was not involved in the patient's management. Lorraine Umanzor NP Nov 06, 2018 13:58
--- NOTE | 2018-11-08 12:54 | NUR ---
CASE MANAGEMENT: Clinical information (face sheet/ ER MD notes/ DC summary) faxed to [facility] @ [phone]
== END 2018-11-06 04:30 | disposition left against medical advice (07) | DRG 282 ==
LOC: EMR 23:09 → 4E 11-06 01:20 → EDBEDREQ 11-06 02:17
DX: K85.90 Acute pancreatitis without necrosis or infection, unspecified (principal); K81.0 Acute cholecystitis
CPT/HCPCS: 36415; 74177; 80053; 81003; 81025; 82248; 83690; 85025; 96361; 96374; 96375; 99285; J2405